=== PATIENT | male | born 1995 | race Caucasian/White ===

== ENCOUNTER 2018-03-25 02:51 | Emergency (ER) | payer OTHER ==
[2018-03-25] MEDS ORDERED: LIDOCAINE 1% 50 ML VIAL INJ ONE (03:08)
[2018-03-25] MEDS ORDERED: IODOFORM 1/4 INCH 1 EA BTTL TOP ONE (03:13)
[2018-03-25] MEDS ORDERED: POVIDONE IODINE 10 % 15 ML UD TOP ONE (03:13)
[2018-03-25 03:20] VITALS: BP 143/90; TEMP 98.5; O2SAT 99
[2018-03-25] MEDS ORDERED: KETOROLAC TROMETHAMINE INJ 60 MG/2 ML VIAL IM ONE (03:33)
[2018-03-25] MEDS ORDERED: ACETAMINOPHEN W/COD #3 TAB (ER Disp) PO ONE (03:33)
[2018-03-25] MEDS ORDERED: SULFA/TRIMETH 800/160 (DS) TAB 1 EA TAB PO ONE (03:33)
--- NOTE | 2018-03-25 03:39 | ED.PDOC ---
History of Present Illness - General Chief Complaint: Skin/Abrasion/Tear Stated Complaint: abcess on buttocks Time Seen by Provider: 03/25/18 03:31 Source: patient, family Exam Limitations: no limitations - History of Present Illness Initial Comments: patient comes in with possible abscess on his right buttock area by the gluteal cleft. Patient states it's been there for the past several days and is worsening. Today it became very swollen and painful and he could not sleep because of the discomfort. He's never had this before and has not had any fever , chills, nausea or vomiting. Timing/Duration: other - 2 days Severity: moderate Location: torso Improving Factors: nothing Worsening Factors: nothing Allergies/Adverse Reactions: Allergies Dextromethorphan [From Pertussin] Allergy (Verified 10/31/14 19:17) Ethanol [From Pertussin] Allergy (Verified 10/31/14 19:17) Guaifenesin [From Pertussin] Allergy (Verified 10/31/14 19:17) Home Medications: Ambulatory Orders Sulfa/Trimeth 800/160 (Ds) Tab [Bactrim DS] 1 tablet PO BID #20 tab 03/25/18 Review of Systems - Review of Systems Constitutional: States: no symptoms reported. Denies: chills, diaphoresis, fever EENTM: States: no symptoms reported Respiratory: States: no symptoms reported Cardiology: States: no symptoms reported Gastrointestinal/Abdominal: States: no symptoms reported. Denies: abdominal pain, nausea, vomiting Skin: States: see HPI Past Medical History (General) - Patient Medical History Hx Asthma: Yes Hx Diabetes: No Surgical History: other - Vaccination History Hx Tetanus, Diphtheria Vaccination: No Hx Influenza Vaccination: No Hx Pneumococcal Vaccination: No - Social History Hx Chewing Tobacco Use: No Hx Alcohol Use: No Hx Substance Use: No Hx Substance Use Treatment: No Hx Depression: No Hx Physical Abuse: No Hx Emotional Abuse: No Hx Suspected Abuse: No - Female History Patient : No Family Medical History - Family History Mother Living Status: Still Living Hx Family;Other: collitis Physical Exam - Physical Exam General Appearance: No apparent distress Eyes, Ears, Nose, Throat Exam: PERRL/EOMI Neck: non-tender Cardiovascular/Chest: regular rate, rhythm, no edema, no gallop, no murmur Respiratory: chest non-tender, lungs clear, normal breath sounds Gastrointestinal/Abdominal: normal bowel sounds, non tender Neurologic: alert, oriented x 3 Skin Problem Location: other - Right buttock adjacent to cleft 2 cm fluctulant erythematous mass Procedures - Incision and Drainage #1 Site: R buttock Procedure and Prep: betadine prep, gauze wick placed, wound culture collected, pus drained Blade Size: 11 Progress: Area was cleaned with betadine. 3 cc of 1 % lidocaine was injected for local anesthesia. 11 blade was used to open area in cross fashion. Large amounts of foul smelling, thick green discharge was drained. Tunnel 1.5 cm deep running inferior to the opening was found. After area drained and culture taken nu guaze was placed and area dressed with 4x4 and secured with tape Departure - Departure Clinical Impression: Infected pilonidal cyst Disposition: Discharge to Home or Self Care Condition: Good Departure Forms: ED Discharge - Pt. Copy, Patient Portal Self Enrollment Diet: regular diet Activity: increase activity as tolerated Referrals: [facility] [Primary Care Provider] - 1-2 Weeks Home Medications: Ambulatory Orders Sulfa/Trimeth 800/160 (Ds) Tab [Bactrim DS] 1 tablet PO BID #20 tab 03/25/18 Additional Instructions: Patient to keep area covered and follow up with PCP in clinic tomorrow to arrange wound care and further packing. May need to further remove cyst in its entirety if recurs. Patient given #6 Tylenol # 3 and may also use OTC IBU 800 mg po TID as needed. Return to ER for temp >100.5, intractable pain, increased swelling.
== END 2018-03-25 03:54 | disposition home or self-care (01) ==
LOC: ER 02:51
DX: L05.91 Pilonidal cyst without abscess (principal); J45.909 Unspecified asthma, uncomplicated
CPT/HCPCS: 87070; J1885

== ENCOUNTER → 2020-04-02 | Outpatient (CLI) | payer OTHER | LOC: YCFC.O 15:38 | PROVIDERS: ATTEND Family Medicine | DX: Z20.828 Contact with and (suspected) exposure to other viral communicable diseases (principal) ==